=== PATIENT | male | born 1990 | race Caucasian/White ===

== ENCOUNTER 2016-12-02 21:39 | Emergency (ER) | payer SELFPAY ==
[2016-12-02] MEDS ORDERED: BUPIVACAINE HCL 0.5 % INJ/PF 30 ML SDV INJ ONE (21:57)
--- NOTE | 2016-12-02 22:12 | ER Document Report ---
ED Hand/Wrist Injury - General Chief Complaint: Laceration Stated Complaint: LEFT HAND LACERATION Time Seen by Provider: 12/02/16 21:51 - HPI Notes: 26-year-old male [id number] presents with laceration to the dorsum of the left hand. He had a fillet knife and accidentally ran it across the back of his hand as he was moving it to the right. He suffered a laceration over the dorsum of the hand just prior to arrival. He is now unable to use his index finger. Also describes numbness and tingling of the index finger as well as the thumb and middle finger as well. Tetanus shot is up-to-date in the last 5 years. He is not diabetic has no other injuries or complaints. This was not in any attempt to harm himself. He does admit to some alcohol tonight. Past Medical History - Social History Smoking Status: Current Every Day Smoker Family History: Other Endocrine Medical History: Denies: Hx Diabetes Mellitus Type 1, Hx Diabetes Mellitus Type 2 Review of Systems - Review of Systems Notes: Denies other injury, no other laceration. Numbness tingling as noted above. Physical Exam - Vital signs Vitals: Temp Pulse Resp BP Pulse Ox 98 F 103 H 18 138/94 H 98 12/02/16 21:42 12/02/16 21:42 12/02/16 21:42 12/02/16 21:42 12/02/16 21:42 Interpretation: Hypertensive - Notes Notes: Vital signs as per nurse's note. Patient is in mild distress. Cap refill is less than 2 seconds distally. Decreased sensation is noted below. Decreased range of motion is noted below. Examination of the left upper extremity shows a 5 cm laceration over the dorsum of the left hand. There is obvious exposed extensor tendons with complete laceration through the mid left dorsum of the hand. There are some partial lacerations as well of the left third digit extensor tendons though he does have function there but some weakness. He has decreased sensation over the radial surface of the third digit as well as the ulnar surface of the first digit and completely of the second digit. The palm is spared. Course - Re-evaluation Re-evalutation: 12/02/16 22:[address] Gilmore who will see the patient in the office tomorrow. Phone number [phone]. [address] Third floor, [facility]. He requests us to washout the laceration and close the laceration. Have the patient see him at 9:00 in the morning and remain n.p.o. for consideration of surgery tomorrow or the next day. Recommends x-ray and we will have this sent with the patient. Further recommends splint. 12/03/16 01:03 Patient had a left hand splint placed for him to function. I recommended just replace it as there was more flexion at the wrist and I would have liked as well it did not extend quite to the fingertips. He deferred this. Apparently he was developing some hematoma prior to the splint placement. He was observed in the emergency department and there was no further extension of that. He does agree for follow-up as discussed. Prior to leaving he had a near syncopal episode. He responded well to a fluid bolus. He deferred further and had to leave so he could have a discussion with his partner. - Vital Signs Vital signs: Temp Pulse Resp BP Pulse Ox 98 F 103 H 13 121/93 H 100 12/02/16 21:42 12/02/16 21:42 12/03/16 00:41 12/03/16 00:41 12/03/16 00:41 - Laboratory Laboratory results interpreted by me: 12/03/16 00:01 POC Glucose 121 H Procedures - Laceration/Wound Repair Left Dorsal Hand Wound length (cm): 8 Wound's Depth, Shape: Linear - After using Marcaine without epinephrine to anesthetize the wound edges the wound was copiously cleaned and irrigated though notably had an arterial bleeding area that was more towards the radial side. I was unable to visualize this area initially due to the pulsatile bleeding. The laceration as well appeared to be more proximal but still distal to the wrist dorsally. There were multiple complete tendon lacerations noted on reevaluation. No foreign body was identified. Again the wound was copiously irrigated, a blood pressure cuff was used to provide hemostasis with a total time of approximately 45 seconds. There was no bleeding noted though I placed 2 Vicryl sutures and left the tags externally to identify the regions. The cuff was removed and no further bleeding was noted the wound edges were then closed using 9 4-0 Ethilon interrupted sutures in addition to the 2 deeper Vicryl sutures. The patient tolerated the procedure well, understanding mandatory follow-up plans. Discharge - Discharge Clinical Impression: Laceration of hand involving extensor tendon Condition: Good Disposition: HOME, SELF-CARE Instructions: Laceration Care (OM) Additional Instructions: Follow-up at 9am with Dr. Gilmore. Just show up at the office with the disc provided. Phone number [phone]. [address], Third floor, [facility]. Keep the splint on. Take the antibiotics as directed starting tomorrow. Do not eat or drink after midnight as he could potentially do your surgery later in the day. Prescriptions: Hydrocodone/Acetaminophen [[place] 5-325 mg Tablet] 1 tab PO Q4HP PRN #14 tablet PRN Reason: For Pain Cephalexin Monohydrate [Keflex 500 mg Capsule] 500 mg PO Q6H 5 Days capsule Forms: Elevated Blood Pressure
[2016-12-02] MEDS ORDERED: CEFAZOLIN 1 GM/D5W RTU 1 GM/50 ML RTUPB IV ONE (22:16)
--- NOTE | 2016-12-02 22:50 | RADIOLOGY REPORT (SQ) ---
EXAM DESCRIPTION: HAND LEFT 2 VIEWS COMPLETED DATE/TIME: 12/02/2016 10:40 pm REASON FOR STUDY: Laceration COMPARISON: None. EXAM PARAMETERS: NUMBER OF VIEWS: Two view. TECHNIQUE: AP and lateral radiographic images acquired of the left hand. LIMITATIONS: None. FINDINGS: MINERALIZATION: Normal. BONES: No acute fracture or dislocation. No worrisome bone lesions. JOINTS: No effusions. SOFT TISSUES: There is soft tissue edema dorsally. OTHER: No other significant finding. IMPRESSION: Soft tissue injury. No radiopaque foreign bodies. TECHNICAL DOCUMENTATION: JOB ID: [id number] [employer]- All Rights Reserved
[2016-12-02] MEDS ORDERED: MORPHINE SULFATE 10 MG/ML INJ ONE (23:00)
[2016-12-02] MEDS ORDERED: ONDANSETRON HCL INJ/PF 4 MG/2 ML SDV ONE (23:00)
[2016-12-02] MEDS ORDERED: MORPHINE SULFATE 10 MG/ML INJ IV ONE (23:26)
[2016-12-02] MEDS ORDERED: ONDANSETRON HCL INJ/PF 4 MG/2 ML SDV IV ONE (23:26)
[2016-12-03] MEDS ORDERED: HYDROCODONE/ACETAMINOPHEN 5-325 MG 6 TAB/DSPK ONE (00:53)
[2016-12-03 01:00] VITALS: BP 121/93
[2016-12-03] MEDS ORDERED: HYDROCODONE/ACETAMINOPHEN 5-325 MG 6 TAB/DSPK PO PRN ×2 (01:03→01:06)
== END 2016-12-03 01:07 | disposition home or self-care (01) ==
LOC: ER 21:39
PROC: 0HQGXZZ Repair Left Hand Skin, External Approach (ICD-10-PCS; principal; 2016-12-02)
DX: S61.412A Laceration without foreign body of left hand, initial encounter (principal); S66.329A Laceration of extensor muscle, fascia and tendon of unspecified finger at wrist and hand level, initial encounter; W26.0XXA Contact with knife, initial encounter
CPT/HCPCS: 99284; 96375; 96365; 82962; 73120; 12044; J0690; J2270; J2405

== ENCOUNTER 2016-12-25 01:24 | Emergency (ER) | payer SELFPAY ==
[2016-12-25] MEDS ORDERED: TRAMADOL HCL 50 MG TABLET PO ONE (01:47)
--- NOTE | 2016-12-25 01:53 | ER Document Report ---
ED General - General Chief Complaint: Hand Pain Stated Complaint: HAND PAIN Time Seen by Provider: 12/25/16 01:37 Notes: Patient is a 18-year-old male who presents with complaints of ongoing pain in his left hand. He had tendon laceration to his hand. He has been having ongoing pain and notes since then. Laceration was 3 weeks ago. He had surgical repair by hand surgeon at [facility]. He does have a splint which he says he does wear. He is currently not wearing it. He said he took it off since he was coming here. Said no redness. He is just a small amount of swelling. He said no fevers. No signs of infection. He describes the pain as a burning type pain that shoots throughout his hand. He says the pain has been constant since the injury and surgery. He is supposed to follow- up with the hand surgeon 6 weeks from the time of the surgery. He denies any new trauma to his hand since the surgery. TRAVEL OUTSIDE OF THE [place] IN LAST 30 DAYS: No Past Medical History - Social History Smoking Status: Unknown if Ever Smoked Frequency of alcohol use: None Drug Abuse: None Family History: Reviewed & Not Pertinent, Other Endocrine Medical History: Denies: Hx Diabetes Mellitus Type 1, Hx Diabetes Mellitus Type 2 Renal/ Medical History: Denies: Hx Peritoneal Dialysis Past Surgical History: Reports: Hx Abdominal Surgery - hernia repair x2 - Immunizations Hx Diphtheria, Pertussis, Tetanus Vaccination: Yes Review of Systems - Review of Systems Notes: My Normal Review Basic REVIEW OF SYSTEMS: CONSTITUTIONAL : Denies fever, chills, or sweats. Denies recent illness. RESPIRATORY: Denies cough, cold, or chest congestion. Denies shortness of breath, difficulty breathing, or wheezing. GASTROINTESTINAL: Denies abdominal pain. Denies nausea, vomiting, or diarrhea. Denies constipation. Last BM: MUSCULOSKELETAL: Right hand pain. SKIN: Denies rash or skin lesions. NEUROLOGICAL: Denies altered mental status or loss of consciousness. No worsening of sensory or motor function since surgery. ALL OTHER SYSTEMS REVIEWED AND NEGATIVE. Physical Exam - Notes Notes: General Appearance: Well nourished, alert, cooperative, no acute distress, no obvious discomfort. Vitals: reviewed, See vital signs table. Eyes: Pupils are normal size and equal, Conjuctiva clear Extremities: strength 5/5 in all extremities, good pulses in all extremities, patient is clean surgical site over the dorsum of the left hand. There is no redness is to the hand. There is no abnormal warmth. There is just very minimal swelling to the hand consistent with him being 2-3 weeks post op . I do not see any unexpected findings on evaluation of his hand in conjunction with him being 2-3 weeks post op. Full flexion-extension of the fingers was not tested being that the patient is supposed to be actually wearing a splint at this time and that he just had tendon repair. I do not want to compromise the patient's recent tendon repair being that they are most likely not fully healed. Good radial and ulnar pulses. Good capillary refill in all fingers. Distal sensation intact in all 5 fingers. Skin: warm, dry, appropriate color, no rash Neuro: speech clear, oriented x 3, normal affect, responds appropriately to questions. Course - Re-evaluation Re-evalutation: 12/25/16 06:06 Patient's hand actually looks very well on exam. She has just very minimal swelling. He has no redness or warmth. No signs of infection. Surgical incision appears to have healed well. Patient was worried about pain control. He wants oxycodone. He says he is on hydrocodone and it just makes him nauseous however he says he still takes it. I told him that he is now almost 3 weeks post surgery. I talked about the risks of continuing opiates for a long period time and my concern for potential side effects such as opiate dependency. I informed him that at 3 weeks postop he should not be on opiates any further. I told him that I would do a less addicting opiate such as Ultram. Patient told me that this does not work that he wants only Percocet. I informed him I would not be prescribing Percocet. I informed him that he would have to follow-up with his hand surgeon as felt the risks of this medication long-term outweigh the benefits. Patient encouraged to follow-up with his hand surgeon. Patient encouraged to wear his splint as he is supposed to wear. I informed him that if he does not wear his splint that he will most likely room to repair that was performed by the hand surgeon. Patient will be discharged home. Dictation of this chart was performed using voice recognition software; therefore, there may be some unintended grammatical errors. Discharge - Discharge Clinical Impression: Hand pain, left Condition: Good Disposition: HOME, SELF-CARE Additional Instructions: Please follow up with your hand surgeon about further pain control. Please wear your splint as instructed by your hand surgeon. Please return to the ER if you have abnormal warmth, redness , or any signs of infection to your hand. Forms: Return to Work
== END 2016-12-25 03:00 | disposition home or self-care (01) ==
LOC: ER 01:24
DX: M79.642 Pain in left hand (principal); Z98.890 Other specified postprocedural states
CPT/HCPCS: 99283